=== PATIENT | female | born 1980 | race Hispanic/Latino ===

== ENCOUNTER 2020-01-19 21:35 | Inpatient (IN) | payer SELFPAY ==
[~2020-01-19] VITALS: Ht 154.9 cm; Wt 84.4 kg
[2020-01-19] MEDS ORDERED: ACETAMINOPHEN EXTRA STRENGTH 500 MG TABLET ONE (22:06)
[2020-01-19 22:27] LABS: APPEARANCE,URINE Clear (CLEAR); BILIRUBIN,URINE Negative (NEGATIVE); COLOR,URINE Yellow (YELLOW); GLUCOSE, URINE (UA) Negative (NEGATIVE); KETONES,URINE Negative (NEGATIVE); LEUKOCYTE ESTERASE ,URINE Negative (NEGATIVE); NITRATE,URINE Negative (NEGATIVE); OCCULT BLOOD,URINE Negative (NEGATIVE); PROTEIN,URINE Negative (NEGATIVE); UROBILINOGEN,URINE 0.2 mg/dL (0.2-1.0)
[2020-01-19 22:34] LABS: HCG,QUAL RESULT NEGATIVE (NEGATIVE)
[2020-01-20] VITALS (8 sets, daily range): BP systolic 110–151; BP diastolic 70–82
[2020-01-20 00:07] LABS: BASOPHILS % (AUTO) 1.3 % (0.0-5.0); EOSINOPHILS % (AUTO) 1.6 % (0.0-8.0); LYMPHOCYTES % (AUTO) 30.1 % (21.0-51.0); MEAN CORPUSCULAR HEMOGLOBIN 11.8 pg (27.0-33.0); MEAN CORPUSCULAR HGB CONC 22.7 g/dL (32.0-36.0); MEAN CORPUSCULAR VOLUME 52.3 fL (79-99); MONOCYTES % (AUTO) 8.9 % (3.0-13.0); NEUTROPHILS % (AUTO) 57.5 % (40.0-77.0); NUCLEATED RED BLOOD CELLS 1.1 % (0.0-0.19); PLATELET COUNT (AUTO) 244 K/uL (130-400); RED BLOOD CELL COUNT(AUTO) 3.46 MIL/uL (4.00-5.50); RED CELL DISTRIBUTION WIDTH 22.5 % (11.0-15.5); WHITE BLOOD COUNT (AUTO) 6.3 K/uL (4.8-10.8)
[2020-01-20 00:16] LABS: HEMATOCRIT 18.1 % (36-48)
[2020-01-20 00:17] LABS: CREATININE 0.6 mg/dL (0.5-1.5); POTASSIUM 3.9 mmol/L (3.5-5.1)
[2020-01-20 00:25] LABS: PARTIAL THROMBOPLASTIN TIME 28.5 SEC (26.3-35.5); PROTHROMBIN TIME 10.8 SEC (9.6-11.6)
[2020-01-20 00:28] LABS: ALBUMIN 3.9 g/dL (3.5-5.0); BILIRUBIN,TOTAL 0.8 mg/dL (0.2-1.0); THYROID STIMULATING HORMONE 3.25 uIU/mL (0.36-3.74)
[2020-01-20 00:41] LABS: BASOPHILS % (AUTO) 0.9 % (0.0-5.0); EOSINOPHILS % (AUTO) 1.4 % (0.0-8.0); LYMPHOCYTES % (AUTO) 30.6 % (21.0-51.0); MEAN CORPUSCULAR HEMOGLOBIN 12.2 pg (27.0-33.0); MEAN CORPUSCULAR HGB CONC 23.3 g/dL (32.0-36.0); MEAN CORPUSCULAR VOLUME 52.3 fL (79-99); MONOCYTES % (AUTO) 9.1 % (3.0-13.0); NEUTROPHILS % (AUTO) 57.6 % (40.0-77.0); NUCLEATED RED BLOOD CELLS 1.4 % (0.0-0.19); PLATELET COUNT (AUTO) 222 K/uL (130-400); RED BLOOD CELL COUNT(AUTO) 3.29 MIL/uL (4.00-5.50); RED CELL DISTRIBUTION WIDTH 22.4 % (11.0-15.5); WHITE BLOOD COUNT (AUTO) 5.6 K/uL (4.8-10.8)
[2020-01-20 00:45] LABS: HEMATOCRIT 17.2 % (36-48)
[2020-01-20] MEDS ORDERED: LACTATED RINGERS 1000ML 1,000 ML IV ONE (02:21)
[2020-01-20] MEDS ORDERED: ONDANSETRON HCL 4 MG/2 ML VIAL IVP PRN (03:15)
[2020-01-20] MEDS ORDERED: SODIUM CHLORIDE 0.9% 500ML 500 ML IV ONE (03:54)
--- NOTE | 2020-01-20 05:40 | NUR ---
Transfusion First unit PRBC's complete. Pt tolerated well.
--- NOTE | 2020-01-20 06:20 | NUR ---
Transfusion Second liter PRBC's initiated per gravity. See transfusion record.
[2020-01-20] MEDS ORDERED: ACET-2123 PO (06:50)
--- NOTE | 2020-01-20 09:30 | NUR ---
SECOND UNIT OF BLOOD TRANSFUSION COMPLETED. PATIENT IS STABLE.
--- NOTE | 2020-01-20 11:30 | NUR ---
DR. LUU CALLED ADN ASKED IF WANTING AN H/H 2 HOUIRS POST TRANSFUSION OF 2 UNITS AND INDICATED YES AND IF LESS THAN 7 TO TRANSFUSE TWO MORE UNITS. H/H ORDERED AND IF LESS THAN 7 WILL ORDER 2 MORE UNITS OF PRBC.
--- NOTE | 2020-01-20 11:45 | NUR ---
DR. Rachel MONTEIRO ROUNDED AND H&P DONE ON PT. DR. LUU HAD BEEN CALLED PRIOR TO HER ROUNDING AND ORDER WAS RECEIVED FROM DR. LUU TO DO 2 HOUR H/H AND IF LESS THAN 7.0 HEMOGLOBIN TO TRANSFUSE 2 MORE UNITS OF PRBC.
[2020-01-20 11:47] LABS: HEMATOCRIT 22.3 % (36-48)
[2020-01-20] MEDS: LACTATED RINGERS 1000ML 1,000 ML IV SCH ×2 (12:08→19:15)
--- NOTE | 2020-01-20 12:52 | NUR ---
LAB CALLED RE PATIENT HAVING AN H/H OF 6.0 AND NO CALL MADE TO DOCTOR SINCE HE IS AWARE OF LOW H/H.
--- NOTE | 2020-01-20 14:50 | NUR ---
THIRD UNIT OF PRBC STARTED AND PATIENT TOLERATING INFUSION WELL. VITAL SIGNS WNL.
--- NOTE | 2020-01-20 15:59 | NUR ---
DILCIA NOTE/IA MET WITH PATIENT IN ROOM. PER PATIENT, LIVES WITH SPOUSE AND FAMILY, INDEPENDENT WITH ADLS, NO USE OF DME OR PROVIDERS AND FEELS SAFE TO RETURN HOME ONCE DISCHARGED FROM HOSPITAL. CORRECTED PHYSICAL ADDRESS FOLLOWS: [address] [place] [address]. [id number]. Addendum: 01/20/20 at 1601 by RICARDA FARRIS RN CM Amended: Links added.
[2020-01-20] MEDS: ACETAMINOPHEN 325 MG TAB PO PRN (20:09)
[2020-01-21 03:18] VITALS: BP 139/75
[2020-01-21 06:28] LABS: HEMATOCRIT 26.4 % (36-48)
[2020-01-21 07:39] VITALS: BP 140/72
[2020-01-21] MEDS: LACTATED RINGERS 1000ML 1,000 ML IV SCH (10:26)
[2020-01-21] MEDS: ACETAMINOPHEN 325 MG TAB PO PRN (10:33)
[2020-01-21 11:10] VITALS: BP 150/84
[2020-01-21 15:28] VITALS: BP 143/74
--- NOTE | 2020-01-21 17:15 | NUR ---
DR. LUU AT BEDSIDE TO ASSESS AND TALK TO PT. NEW ORDERS RECEIVED FOR DISCHARGE.
--- NOTE | 2020-01-21 18:50 | NUR ---
DISCHARGE PT LEFT UNIT VIA WHEELCHAIR, ACCOMPANIED BY FAMILY. DENIED PAIN AND HAD NO COMPLAINTS. TRANSPORTED BY PERSONAL VEHICLE.
== END 2020-01-21 18:50 | disposition home or self-care (01) | DRG 761 ==
LOC: EDH 21:35 → EDHIP 21:36 → WSH 01-20 05:00
PROVIDERS: ADMIT Obstetrics & Gynecology; ATTEND Obstetrics & Gynecology
PROC: 30233N1 Transfusion of Nonautologous Red Blood Cells into Peripheral Vein, Percutaneous Approach (ICD-10-PCS; principal; 2020-01-20)
DX: N92.0 Excessive and frequent menstruation with regular cycle (principal); D64.9 Anemia, unspecified; G43.909 Migraine, unspecified, not intractable, without status migrainosus; D25.9 Leiomyoma of uterus, unspecified; N85.8 Other specified noninflammatory disorders of uterus; Z90.49 Acquired absence of other specified parts of digestive tract
CPT/HCPCS: 36415; 36430; 70450; 76856; 80053; 81003; 81025; 84443; 85014; 85018; 85025; 85610; 85730; 86850; 86900; 86901; 86922; 86923; 93005; G0378; J2405; J7030; J7040; J7120; P9016

== ENCOUNTER 2023-02-02 21:46 | Emergency (ER) | payer OTHER ==
[~2023-02-02] VITALS: Ht 154.9 cm; Wt 94.8 kg
[~2023-02-02 21:46] MED LIST: ACET-2123 PO
[2023-02-02 22:17] VITALS: BP 182/77; PULSE 88; RESP 18
== END 2023-02-03 00:43 | disposition left against medical advice (07) ==
LOC: EDH 21:46
DX: R42 Dizziness and giddiness (principal); Z53.21 Procedure and treatment not carried out due to patient leaving prior to being seen by health care provider
CPT/HCPCS: 99281